=== PATIENT | male | born 1985 | race Caucasian/White ===

== ENCOUNTER 2017-10-01 14:30 | Emergency (ER) | payer OTHER ==
[~2017-10-01] VITALS: Ht 165.1 cm; Wt 99.8 kg
[~2017-10-01 14:30] MED LIST: KETO10TA2 PO; ORPH100T PO
[2017-10-01] MEDS ORDERED: BENADRYL25 MG (14:44)
== END 2017-10-01 23:05 | disposition home or self-care (01) ==
LOC: ER 14:30 → CPU-OBS 15:34 → ER 23:05
DX: R05 Cough (principal); R06.02 Shortness of breath
CPT/HCPCS: G0378; 93005